=== PATIENT | male | born 1985 | race Caucasian/White ===

== ENCOUNTER 2018-08-28 13:57 | Emergency (ER) | payer OTHER ==
[2018-08-28 14:06] VITALS: BP 112/66; PULSE 57; TEMP 98.1; BMI 28.2
--- NOTE | 2018-08-28 14:31 | PDOC ---
History of Present Illness - General Chief Complaint: Weakness Stated Complaint: DEHYRATED/ CONSTIPATED Time Seen by Provider: 08/28/18 14:30 History Source: Patient - History of Present Illness Timing/Duration: other (today) Severity: moderate Past History - Past Medical History Allergies/Adverse Reactions: Allergies Allergy/AdvReac Type Severity Reaction Status Date / Time No Known Allergies Allergy Verified 08/28/18 14:02 Home Medications: Ambulatory Orders NK [No Known Home Medication] 08/28/18 COPD: No - Suicide/Smoking/Psychosocial Hx Smoking History: Never smoked Number of Cigarettes Smoked Daily: 0 Hx Alcohol Use: No Drug/Substance Use Hx: No Substance Use Type: Marijuana Review of Systems - Review of Systems Constitutional: Yes: Weakness. No: Chills, Fever Respiratory: No: Shortness of Breath Cardiac (ROS): No: Chest Pain ABD/GI: Yes: Constipated, Nausea, Abdominal cramping. No: Blood Streaked Bowels , Diarrhea, Rectal Bleeding, Vomiting, Tarry Stools : No: Dysuria, Flank Pain, Hematuria *Physical Exam - Vital Signs Last Vital Signs Temp Pulse Resp BP Pulse Ox 98.1 F 57 L 18 112/66 97 08/28/18 13:58 08/28/18 13:58 08/28/18 13:58 08/28/18 13:58 08/28/18 13:58 - Physical Exam General Appearance: Yes: Appropriately Dressed. No: Apparent Distress HEENT: positive: Normal Voice Neck: positive: Supple Respiratory/Chest: negative: Respiratory Distress Gastrointestinal/Abdominal: positive: Normal Bowel Sounds, Tender (poorly localized ttp to lower abd, NT over mcburneys), Soft. negative: Distended, Guarding, Rebound Musculoskeletal: negative: CVA Tenderness Integumentary: positive: Dry, Warm Neurologic: positive: Fully Oriented, Alert, Normal Mood/Affect ED Treatment Course - LABORATORY CBC & Chemistry Diagram: 08/28/18 14:48 08/28/18 14:48 Medical Decision Making - Medical Decision Making 08/28/18 14:31 32 yo M, no significant history, here with generalized weakness. Patient states for the past month he has significantly decreased his po intake including fluids in anticipation for a kick boxing fight today in which he had to wait 170 pounds or less. States a month ago he was 215 pounds and that when he presented for fight today, was told he could not fight because he was 174 pounds and overweight for fight. Patient states in order to lose the 4 extra pounds, he sat in a sauna for 4 hours, but began feeling very weak and nauseous after that. Pt also reporting constipation today. Last bowel movement 3 days ago. Also noticed decreased urinary output today. No bright red blood per rectum, vomiting, fever or chills See exam Concern for rhabdo vs dehydration in setting of strenuous exercise/decreased po intake Stable and alert -IVF -labs -reassess 08/28/18 15:47 CK 936 w/ Cr 1.4 (Cr 1.4 on labs in 2016 per records). Rest of electrolytes within normal limits. UA pending. Patient reports feeling significantly better at this time s/p 2L IVF and currently tolerating po in ED. Had lengthy discussion with patient regarding danger of over exertion especially in the setting of decreased nutrition and dehydration. As discussed with ED attending , upon discharge, will instruct to hydrate and rest w/ return precautions 08/28/18 16:43 Urine sample yellow and clear on gross inspection. Pt declines to wait for results. Will call as needed *DC/Admit/Observation/Transfer Diagnosis at time of Disposition: Rhabdomyolysis Qualifiers: Rhabdomyolysis type: non-traumatic Qualified Code(s): M62.82 - Rhabdomyolysis - Discharge Dispostion Disposition: HOME Condition at time of disposition: Improved - Referrals Referrals: Jose Bethea MD [Primary Care Provider] - - Patient Instructions Printed Discharge Instructions: Rhabdomyolysis Additional Instructions: Rhabdomyolysis is when muscle tissue gets severely damaged and substances from inside the muscle cells leak out into the blood. This can lead to serious problems in the body, including: -Kidney damage Normally, the kidneys filter the blood and remove waste and excess salt and water Severe kidney damage can lead to "acute kidney failure," which is when the kidneys stop working. -Not having the right amount of certain salts in the blood The body needs the correct amount of certain salts (for example, potassium) to work normally. Having levels of these substances that are too high or too low can cause problems. Rhabdomyolysis can be mild or severe. Severe rhabdomyolysis can be life- threatening. What causes rhabdomyolysis? Different things can cause muscle tissue to get damaged, including: -Muscle injury, for example, from surgery or getting hurt -Very intense exercise -Lying in the same position for a very long time, such as being in a coma -Some kinds of infections -Some kinds of medicines or poisons -Muscle problems that some people are born with What are the symptoms of rhabdomyolysis? Some people have no symptoms. They might find out they have it when their doctor does blood tests for another reason. Other people have symptoms that include: -Muscle pain -Urine that is red or brown Muscle weakness Should I see a doctor or nurse? Yes. Call your doctor or nurse if you have the above symptoms, especially after getting hurt or exercising very hard. Is there a test for rhabdomyolysis? Yes. Your doctor or nurse can do blood tests and urine tests to check for rhabdomyolysis and any problems it has caused. How is rhabdomyolysis treated? Treatment depends on what's causing your rhabdomyolysis and how severe your condition is. Most people are treated in the hospital. Your doctor will treat the cause of your rhabdomyolysis, if it can be treated. He or she will also treat any problems that the rhabdomyolysis has caused. Treating these problems usually involves: -Fluids that go into your vein through a thin tube, called an "IV" Fluids can help the body flush out the substances from the muscle cells. -Medicines to correct the salt levels in your body -Treatment to help until your kidneys work normally again This can include medicines, diet changes, or "renal replacement therapy." Renal replacement therapy is a term for treatments that take over the job of the kidneys. It involves either: Please continue to hydrate yourself at home with fluids including water and Gatorade. Please rest and maintain adequate nutrition. If symptoms worsen, return to ED as discussed - Post Discharge Activity Forms/Work/School Notes: Back to Work
[2018-08-28 14:56] LABS: BASO % 0.9 % (0-2.0); EOS % 0.9 % (0-4.5); HEMATOCRIT 40.9 % (35.4-49); HEMOGLOBIN 14.1 GM/dL (11.7-16.9); LYMPH % 23.9 % (8-40); MCH 30.7 pg (25.7-33.7); MCHC 34.4 g/dl (32.0-35.9); MEAN CELL VOLUME 89.3 fl (80-96); MEAN PLT VOLUME 10.6 fl (7.5-11.1); MONO % 11.3 % (3.8-10.2); PLATELET COUNT 149 K/MM3 (134-434); RBC 4.58 M/mm3 (4.00-5.60); RDW 13.4 % (11.9-15.9)
[2018-08-28] MEDS ORDERED: SODIUM CHLORIDE 1,000 ML IV STA ×2 (14:58→15:33)
[2018-08-28 15:14] LABS: ALBUMIN 4.5 g/dl (3.4-5.0); ALK PHOS 57 U/L (45-117); ANION GAP 6 MMOL/L (8-16); BLOOD UREA NITROGEN 23 mg/dL (7-18); CALCIUM 9.6 mg/dL (8.5-10.1); CHLORIDE 103 mmol/L (98-107); CO2 30 mmol/L (21-32); CREATININE 1.4 mg/dL (0.55-1.3); GLUCOSE,RANDOM 92 mg/dL (74-106); POTASSIUM 4.1 mmol/L (3.5-5.1); SGOT/AST 58 U/L (15-37); SGPT/ALT 51 U/L (13-61); SODIUM 138 mmol/L (136-145)
--- NOTE | 2018-08-28 15:52 | PDOC ---
*Physical Exam - Vital Signs Last Vital Signs Temp Pulse Resp BP Pulse Ox 98.1 F 57 L 18 112/66 97 08/28/18 13:58 08/28/18 13:58 08/28/18 13:58 08/28/18 13:58 08/28/18 13:58 ED Treatment Course - LABORATORY CBC & Chemistry Diagram: 08/28/18 14:48 08/28/18 14:48 - ADDITIONAL ORDERS Additional order review: Laboratory Results 08/28/18 14:48 Sodium 138 Potassium 4.1 Chloride 103 Carbon Dioxide 30 Anion Gap 6 L BUN 23 H Creatinine 1.4 H Creat Clearance w eGFR 58.37 Random Glucose 92 Calcium 9.6 Total Bilirubin 1.0 AST 58 H ALT 51 Alkaline Phosphatase 57 Creatine Kinase 936 H Creatine Kinase Index 0.4 CK-MB (CK-2) 4.6 H Total Protein 8.0 Albumin 4.5 08/28/18 14:48 RBC 4.58 MCV 89.3 MCHC 34.4 RDW 13.4 MPV 10.6 D Neutrophils % 63.0 D Lymphocytes % 23.9 D Monocytes % 11.3 H Eosinophils % 0.9 D Basophils % 0.9 D Medical Decision Making - Medical Decision Making 08/28/18 15:51 32 yo M who aggressively lost weight for a boxing match Today was his match but he was 4 pounds overweight He sat in a hot sauna in order to try to lose more weight He exited the sauna and felt weak No chest pain 08/28/18 15:52 Laboratory Tests 08/28/18 08/28/18 14:48 14:48 WBC 6.0 Hgb 14.1 Hct 40.9 Plt Count 149 D BUN 23 H Creatinine 1.4 H Creatine Kinase 936 H Creatine Kinase Index 0.4 CK-MB (CK-2) 4.6 H Given 2 L NS will discharge to home Follow up with PMD Agree with plan per LLOYD Garcia *DC/Admit/Observation/Transfer - Referrals Referrals: Jose Bethea MD [Primary Care Provider] - - Patient Instructions - Post Discharge Activity
[2018-08-28 18:36] LABS: EPI CELLS 1.2 /HPF (0-5/HPF); URINE APPEARANCE CLEAR; URINE BACTERIA 1.9 /hpf (NEGATIVE); URINE BILIRUBIN NEGATIVE (NEGATIVE); URINE CASTS 3 /lpf (0-8); URINE COLOR DK YELLOW; URINE GLUCOSE (UA) NEGATIVE (NEGATIVE); URINE KETONE 3+ (NEGATIVE); URINE LEUK ESTERASE NEGATIVE (NEGATIVE); URINE NITRITE NEGATIVE (NEGATIVE); URINE PROTEIN 2+ (NEGATIVE); URINE RBC 4 /hpf (0-4); URINE WBC 1 /hpf (0-5)
== END 2018-08-28 16:31 | disposition home or self-care (01) ==
LOC: JER 13:57
PROC: 3E0337Z Introduction of Electrolytic and Water Balance Substance into Peripheral Vein, Percutaneous Approach (ICD-10-PCS; principal; 2018-08-28)
DX: M62.82 Rhabdomyolysis (principal)
CPT/HCPCS: 36415; 80053; 81003; 82550; 82553; 85025; 96360; 96361; 99281-25; J7030